=== PATIENT | male | born 1940 | race Caucasian/White ===

== ENCOUNTER 2019-04-03 10:20 | Outpatient (RCR) | payer MEDICARE | END 2019-04-04 | disposition home or self-care (01) | LOC: CARDREHAB | DX: Z48.812 Encounter for surgical aftercare following surgery on the circulatory system (principal); Z95.1 Presence of aortocoronary bypass graft; I25.10 Atherosclerotic heart disease of native coronary artery without angina pectoris ==

== ENCOUNTER 2019-04-05 10:20 | Outpatient (RCR) | payer MEDICARE | END 2019-04-05 11:20 | LOC: CARDREHAB 10:20 | DX: I25.10 Atherosclerotic heart disease of native coronary artery without angina pectoris (principal) ==

== ENCOUNTER 2022-10-06 20:13 | Emergency (ER) | payer MEDICARE ==
[~2022-10-06] VITALS: Ht 175.3 cm; Wt 92.3 kg
[2022-10-06] MEDS ORDERED: PAIN RELIEVER650 MG PO (20:33)
[2022-10-06] MEDS ORDERED: LIPITOR 80MG80 MG PO (20:34)
[2022-10-06] MEDS ORDERED: ASPIRIN E.C. 8181 MG (20:34)
[2022-10-06] MEDS ORDERED: CARVEDILOL3.125 MG PO (20:35)
[2022-10-06] MEDS ORDERED: CLOPIDOGREL PO (20:35)
[2022-10-06] MEDS ORDERED: ZETIA10 M1 PO (20:36)
[2022-10-06] MEDS ORDERED: LEVOTHYROXINE125 MCG PO (20:37)
[2022-10-06] MEDS ORDERED: LASIX20 M1 PO (20:37)
[2022-10-06] MEDS ORDERED: PROTONIX TR40 M1 PO (20:38)
[2022-10-06] MEDS ORDERED: LOSARTAN POTASS25 MG PO (20:38)
[2022-10-06 21:27] VITALS: BP 142/53
== END 2022-10-06 21:28 | disposition home or self-care (01) ==
LOC: ED 20:13
DX: S61.211A Laceration without foreign body of left index finger without damage to nail, initial encounter (principal); Z79.01 Long term (current) use of anticoagulants; Z23 Encounter for immunization; W26.8XXA Contact with other sharp object(s), not elsewhere classified, initial encounter
CPT/HCPCS: 90715